=== PATIENT | female | born 1955 | race Caucasian/White ===

== ENCOUNTER → 2016-11-22 | Outpatient (CLI) | payer OTHER ==
[~2016-11-22] MED LIST: ASPI81TA85 PO; DIOV160T2 PO; PERC10TA9 PO; PERCOCET FT; VENL75CA PO; ZOCO20TA PO
--- NOTE | 2016-11-22 16:43 | REPMRS ---
Patient History The patient states she had a clinical breast exam in 2015. Patient is postmenopausal and has history of other cancer at age 28. Family history of colorectal cancer in maternal grandmother at age 77. Took hormonal contraceptives for 15 years. Took estrogen for 3 years. Digital Mammo Screening Bilat: November 22, 2016 - Exam #: [id number] Bilateral CC and MLO view(s) were taken. Technologist: Becca Robledo, Technologist Prior study comparison: July 23, 2015, bilateral digital mammo screening bilat performed at [facility]. March 10, 2014, bilateral bilat screen digital mammo, performed at [facility] ([facility] FINDINGS: There are scattered fibroglandular densities. There has been no change in the appearance of the mammogram from the prior studies. There is a scant amount of residual fibroglandular tissue which is fairly symmetric. There is no interval development of dominant mass, architectural distortion, or clustered microcalcification suggestive of malignancy. Scattered lymph nodes are seen in the left axilla. A single benign coarse calcification in the right breast is stable. No significant changes when compared with prior studies. ASSESSMENT: BI-RADS/ACR category 2 mammogram. Benign finding(s). Recommendation Routine screening mammogram in 1 year (for women over age 40). This mammogram was interpreted with the aid of an FDA-approved computer-aided dectection system. A. Negative x-ray reports should not delay biopsy if a dominant or clinically suspicious mass is present. B. Four to eight percent of cancers are not identified by mammography. C. Adenosis and dense breast may obscure an underlying neoplasm. Electronically Signed By: Sanjay Fairchild MD 11/22/16 [id number]
== END ==
LOC: M RAD 14:50
PROVIDERS: ATTEND Internal Medicine
DX: Z12.31 Encounter for screening mammogram for malignant neoplasm of breast (principal)

== ENCOUNTER 2017-02-16 12:34 | Emergency (ER) | payer OTHER ==
[~2017-02-16] VITALS: Ht 160 cm; Wt 83.9 kg
[2017-02-16] MEDS ORDERED: LEVO50TA5 PO (13:12)
[2017-02-16] MEDS ORDERED: VALS160T PO (13:13)
--- NOTE | 2017-02-16 15:05 | REP ---
CT CERVICAL SPINE WITHOUT CONTRAST: 02/16/2017 CLINICAL HISTORY: Trauma. TECHNIQUE: Axial soft-tissue and bone windows with coronal and sagittal bone reconstructions provided. FINDINGS: The sagittal mail order clerk image shows a hard collar in place. There is a small mucous retention cyst or polyp in the floor of the left maxillary antrum. There is mucosal thickening anteriorly in the left sphenoid sinus. The ethmoid air cells are grossly intact. There is minor mucosal thickening in the medial and lateral garland of the inferior right maxillary sinus. There is no air-fluid levels. Visualized skull base and mastoids unremarkable. Sagittal reconstruction show spondylosis with larger osteophytes at C6-7. Smaller at C5-6, C4-5 and C3-4. There is disc space narrowing from C4-5 through C6-7. No compression deformity or malalignment. No avulsions. The ring of C1 is intact. The dens shows normal relationship to the anterior arch and lateral masses of C1 on all projections. Spinous processes, facets, lamina, pedicles and transverse processes are all grossly intact. Hypertrophic facet change. Marginal osteophytes at C4-5 through C6-7 small. No significant central canal stenosis or foraminal stenosis. IMPRESSION: 1. Diffuse degenerative disc changes from C4-5 to C6-7 disc space narrowing, anterior posterior osteophytes and mild spurring anteriorly at C3-4. No compression deformity or destructive lesion and no central canal or foraminal stenosis. 2. I do not see other significant findings in the cervical spine. Signed by Sanjay Fairchild MD 02/16/2017 05:03 P
[2017-02-16] MEDS ORDERED: NORCO, ANEXSIA 5/325MG TABLET (HYDROcodone/ACETAMINOPHEN) PO ONE (16:15)
--- NOTE | 2017-02-16 16:17 | REP ---
Clinical: Chest pain . Comparison: None . Technique: PA and lateral. Findings: The mediastinum and cardiac silhouette are normal. The lung crook are clear and without acute consolidation, effusion, or pneumothorax. Minimal linear atelectasis at the left base cannot be excluded. The skeletal structures are intact and normal. Impression: Minimal linear atelectasis at the left base cannot be excluded. Signed by Rick Priest MD 02/16/2017 04:08 P
--- NOTE | 2017-02-16 16:20 | REP ---
Clinical: Trauma . Technique: AP, lateral, bilateral oblique views of the right and left elbow. Findings: No acute fracture or dislocation is appreciated. Joint spaces and surrounding soft tissues appear normal. Lateral view demonstrates normal positioning to the anterior and posterior fat pads without evidence for effusion/hemarthrosis. No subcutaneous emphysema or foreign body identified. Impression: Normal bilateral elbow radiographs. No acute fracture dislocation. Signed by Rick Priest MD 02/16/2017 04:11 P
--- NOTE | 2017-02-16 16:20 | REP ---
Clinical: Trauma . Technique: Internal rotation, external rotation, and Y view left shoulder . Findings: No acute fracture or dislocation. The acromioclavicular and glenohumeral joints are intact. No periarticular calcifications or degenerative changes are appreciated. Sub acromial space is normal. Surrounding soft tissues are unremarkable. Impression: Normal left shoulder radiographs. Signed by Rick Priest MD 02/16/2017 04:12 P
[2017-02-16] MEDS ORDERED: NORCOTAB PO (17:16)
[2017-02-16] MEDS ORDERED: CYCL5TA PO (17:17)
[2017-02-16 17:39] VITALS: BP 141/84
--- NOTE | 2017-02-17 11:39 | ECGEPIP ---
Stationary ECG Study [facility] - ED Test Date: 2017-02-16 Pat Name: RAKESH ALVAREZ Department: Room: - Gender: F Sports Anchor: benjie : 1955 Requested By: Eleonora Sanchez Order Number: [id number] Reading MD: Eleonora Sanchez Measurements Intervals [place] Rate: 84 P: -1 IL: 99 QRS: -10 QRSD: 88 T: 66 QT: 382 QTc: 452 Interpretive Statements SINUS RHYTHM WITH SHORT [place] INTERVAL LEFT VENTRICULAR HYPERTROPHY AND ST-T CHANGE VS ISCHEMIA INCREASED RATE 10/19/13 Electronically Signed On 02-17-2017 11:38:55 EDT by Eleonora Sanchez
== END 2017-02-16 17:40 | disposition home or self-care (01) ==
LOC: M ED 15:38
DX: S13.4XXA Sprain of ligaments of cervical spine, initial encounter (principal); T14.8 Other injury of unspecified body region; V43.52XA Car driver injured in collision with other type car in traffic accident, initial encounter; Y92.410 Unspecified street and highway as the place of occurrence of the external cause; Z79.899 Other long term (current) drug therapy; R94.31 Abnormal electrocardiogram [ECG] [EKG]; M50.30 Other cervical disc degeneration, unspecified cervical region; M25.78 Osteophyte, vertebrae

== ENCOUNTER → 2017-07-10 | Outpatient (CLI) | payer OTHER ==
[~2017-07-10] MED LIST changes: +CYCL5TAB PO; +LEVO50TA5 PO; +NORCOTAB PO; +VALS160T PO
== END ==
LOC: M WUC 15:59
PROVIDERS: ATTEND Nurse Practitioner Family
DX: Z00.00 Encounter for general adult medical examination without abnormal findings (principal)

== ENCOUNTER → 2017-12-18 | Outpatient (CLI) | payer OTHER | LOC: M RAD 13:26 | DX: Z12.31 Encounter for screening mammogram for malignant neoplasm of breast (principal) ==

== ENCOUNTER → 2018-01-04 | Outpatient (REF) | payer OTHER | LOC: M LAB REF 12:22 | DX: L72.11 Pilar cyst (principal) ==

== ENCOUNTER 2018-11-28 06:43 | Day surgery (SDC) | payer OTHER ==
[~2018-11-28] VITALS: Ht 162.6 cm; Wt 80.7 kg
[~2018-11-28 06:43] MED LIST changes: +ATOR1TAB21 PO; +CLOB0.0526 TOP; +LEVO88TA3 PO; +MULT1TAB10 PO; +NS 1,000 ML IV ONE; +VENL150C43 PO; +VENL75CA47 PO
[2018-11-28] MEDS ORDERED: PROPOFOL 200 MG/20 ML VIAL As Ordered ONE (07:33)
[2018-11-28] MEDS ORDERED: LIDOCAINE 2% INJ 100 MG/5 ML SDV (FOR ANES.) As Ordered ONE (07:33)
--- NOTE | 2018-11-28 07:57 | ROOR ---
Patient Name: Camila Fuller Procedure Date: 11/28/2018 7:29 AM Date of : 1955 Age: 63 Room: [facility] ED Gender: Female Note Status: Finalized Procedure: Total Colonoscopy to Cecum + Biopsy Polypectomy Indications: High risk colon cancer surveillance: Personal history of colonic polyps, Last colonoscopy: 2014 Providers: Woodrow Ware MD Referring MD: Ariana LOMELI MD Requesting Provider: Medicines: Monitored Anesthesia Care Complications: No immediate complications. Procedure: Pre-Anesthesia Assessment: - The heart rate, respiratory rate, oxygen saturations, blood pressure, adequacy of pulmonary ventilation, and response to care were monitored throughout the procedure. The Colonoscope was introduced through the anus and advanced to the cecum, identified by appendiceal orifice and ileocecal valve. The colonoscopy was performed without difficulty. The patient tolerated the procedure well. The quality of the bowel preparation was excellent. Findings: The perianal and digital rectal examinations were normal. Non-bleeding internal hemorrhoids were found during retroflexion. The hemorrhoids were small and Grade I (internal hemorrhoids that do not prolapse). Scattered small-mouthed diverticula were found in the recto-sigmoid colon, sigmoid colon and descending colon. A small polyp was found at 10 cm proximal to the anus. The polyp was sessile. The polyp was removed with a jumbo cold forceps. Resection and retrieval were complete. A small polyp was found in the cecum. The polyp was sessile. The polyp was removed with a jumbo cold forceps. Resection and retrieval were complete. A small polyp was found in the proximal transverse colon. The polyp was sessile. The polyp was removed with a jumbo cold forceps. Resection and retrieval were complete. The exam was otherwise without abnormality on direct and retroflexion views. Impression: - Non-bleeding internal hemorrhoids. - Diverticulosis in the recto-sigmoid colon, in the sigmoid colon and in the descending colon. - One small polyp at 10 cm proximal to the anus, removed with a jumbo cold forceps. Resected and retrieved. - One small polyp in the cecum, removed with a jumbo cold forceps. Resected and retrieved. - One small polyp in the proximal transverse colon, removed with a jumbo cold forceps. Resected and retrieved. - The examination was otherwise normal on direct and retroflexion views. - The exam was otherwise normal to the cecum. Recommendation: - Patient has a contact number available for emergencies. The signs and symptoms of potential delayed complications were discussed with the patient. Return to normal activities tomorrow. Written discharge instructions were provided to the patient. - High fiber diet. - Discharge patient to home. - Continue present medications. - Await pathology results. - Telephone GI clinic for pathology results in 1 week. - Repeat colonoscopy in 5 years for surveillance based on pathology results. - Return to referring physician. - Check Portal Online for Path Results.([email or web address]) - The findings and recommendations were discussed with the patient's family. Woodrow Ware MD Woodrow Ware MD 11/28/2018 7:57:07 AM This report has been signed electronically. Number of Addenda: 0 Note Initiated On: 11/28/2018 7:29 AM Estimated Blood Loss: Estimated blood loss: none.
[2018-11-28 08:15] VITALS: BP 115/63
== END 2018-11-28 08:25 | disposition home or self-care (01) ==
LOC: M OPP 06:43
PROVIDERS: ATTEND Internal Medicine Gastroenterology
DX: Z86.010 Personal history of colon polyps (principal); K63.5 Polyp of colon; D12.0 Benign neoplasm of cecum; D12.3 Benign neoplasm of transverse colon; K64.0 First degree hemorrhoids; K57.30 Diverticulosis of large intestine without perforation or abscess without bleeding; E03.9 Hypothyroidism, unspecified; Z79.899 Other long term (current) drug therapy; Z87.891 Personal history of nicotine dependence

== ENCOUNTER → 2019-06-25 | Outpatient (CLI) | payer OTHER ==
[~2019-06-25] MED LIST changes: +HYDR-3715 PO; -NORCOTAB PO; -NS 1,000 ML IV ONE; +OXYC1TAB23 FT; -PERCOCET FT
--- NOTE | 2019-06-25 12:55 | REPMRS ---
Patient History The patient states she had a clinical breast exam in October 2018.Family history of colorectal cancer at age 77 in maternal grandmother. Took hormonal contraceptives for 15 years. Took estrogen for 3 years. 3D TOMOSYNTHESIS WAS PERFORMED. The Christiano Petit lifetime risk for breast cancer is 6.9%. Digital Mammo Screening Bilat: June 25, 2019 - Exam #: [id number] Bilateral CC and MLO view(s) were taken. Technologist: Bri Cortez, Technologist Prior study comparison: December 18, 2017, bilateral digital mammo screening bilat performed at [facility]. November 22, 2016, bilateral digital mammo screening bilat performed at [facility]. FINDINGS: There are scattered fibroglandular densities. There has been no change in the appearance of the mammogram from the prior studies. There is a mild amount of residual fibroglandular tissue which is fairly symmetric. There is no interval development of dominant mass, architectural distortion, or clustered microcalcification suggestive of malignancy. Assessment: BI-RADS/ACR category 1 mammogram. Negative Mammogram. Recommendation Routine screening mammogram in 1 year (for women over age 40). This mammogram was interpreted with the aid of an FDA-approved computer-aided dectection system. Electronically Signed By: Bo Omalley MD 06/25/19 [id number]
== END ==
LOC: M RAD 11:09
PROVIDERS: ATTEND Internal Medicine
DX: Z12.31 Encounter for screening mammogram for malignant neoplasm of breast (principal)

== ENCOUNTER → 2020-09-14 | Outpatient (CLI) | payer MEDICARE, OTHER ==
[~2020-09-14] MED LIST changes: -VALS160T PO; +VALS160T2 PO
--- NOTE | 2020-09-14 13:54 | REPMRS ---
Patient History The patient states she had a clinical breast exam in 04/20 Patient is postmenopausal and has history of cervical cancer at age 28. Family history of colorectal cancer at age 77 in maternal grandmother. Took hormonal contraceptives for 15 years. Took estrogen for 3 years. Digital Woman Screen Mammo: September 14, 2020 - Exam #: [id number] Bilateral CC and MLO view(s) were taken. Technologist: Haley Barraza, Technologist Prior study comparison: June 25, 2019, bilateral digital mammo screening bilat, performed at [facility]. December 18, 2017, bilateral digital mammo screening bilat, performed at [facility]. November 22, 2016, bilateral digital mammo screening bilat, performed at [facility]. FINDINGS: The breast tissue is almost entirely fat. The Volpara volumetric breast density category is: A. There has been no change in the appearance of the mammogram from the prior studies. There is no interval development of dominant mass, architectural distortion, or grouped microcalcification typical of malignancy. 3-D tomosynthesis shows no additional findings. Assessment: BI-RADS/ACR category 1 mammogram. Negative Mammogram. Recommendation Routine screening mammogram of both breasts in 1 year (for women over age 40). This patient's [facility] Lifetime Breast Cancer RIsk is estimated at 6.6 %. This mammogram was interpreted with the aid of an FDA-approved computer-aided dectection system. Electronically Signed By: Hardeep Duran MD 09/14/20 [id number]
--- NOTE | 2020-09-14 16:56 | DEXAMM ---
INDICATION: M85.80 DISORDER OF BONE DENSITY. COMPARISON: Comparison study April 12, 2011 and January 04 2006.. TECHNIQUE: Bone density was measured using dual-energy x-ray absorptionmetry (DEXA). FINDINGS: AP SPINE L1-L4 BMD 1.237 g/cm2 Young Adult T-Score 0.3 Age Matched Z-Score 1.9. LT FEMUR, TOTAL BMD 1.076 g/cm2 Young Adult T-Score 0.5 Age Matched Z-Score 1.7. LT NECK BMD 0.884 g/cm2 Young Adult T-Score -1.1 Age Matched Z-Score 0.4. RT FEMUR, TOTAL BMD 1.062 g/cm2 Young Adult T-Score 0.4 Age Matched Z-Score 1.6. RT NECK BMD 0.914 g/cm2 Young Adult T-Score -0.9 Age Matched Z-Score 0.6. IMPRESSION: There is normal bone density of the spine. There is low bone density of the left hip. There is normal bone density of the right hip. The density of the spine has decreased 2.7% since the initial exam on January 04, 2006. The density of the spine decreased 6.4% since most recent exam on April 12, 2011. The density of the left hip has decreased 1.9% since initial exam on January 04, 2006. The density of the left hip has decreased 1.6% since most recent exam on April 12, 2011. The density of the right hip has decreased 3.5% since the initial exam on January 04, 2006. The density of the right hip has decreased 4.6% since the most recent exam on April 12, 2011. FOLLOW-UP: Recommendation for the next bone density exam: 2 years. <Electronically signed by Hardeep Duran > 09/14/20 [id number]
== END ==
LOC: M WHC 12:58
PROVIDERS: ATTEND Internal Medicine
DX: Z12.31 Encounter for screening mammogram for malignant neoplasm of breast (principal); Z85.41 Personal history of malignant neoplasm of cervix uteri; Z92.0 Personal history of contraception; M85.852 Other specified disorders of bone density and structure, left thigh

== ENCOUNTER → 2021-04-10 | Outpatient (REF) | payer MEDICARE, OTHER | LOC: M LAB REF 17:56 | PROVIDERS: ATTEND Nurse Practitioner Family | DX: R35.0 Frequency of micturition (principal) ==

== ENCOUNTER → 2021-10-06 | Outpatient (CLI) | payer MEDICARE, OTHER ==
--- NOTE | 2021-10-06 16:01 | REPMRS ---
Patient History The patient states she had a clinical breast exam in September 2021. Patient is postmenopausal and has history of other cancer at age 28. Family history of colorectal cancer at age 77 in maternal grandmother. Took hormonal contraceptives for 15 years. Took estrogen for 3 years. 10 lb unintentional weight gain. Pfizer vaccines 10/31/20 left arm. 11/21/20 left arm. 07/26/21 left arm. Patient states no breast complaints today. Patient has signed MRS History Sheet. Digital Woman Screen Mammo: October 06, 2021 - Exam #: [id number] Bilateral CC and MLO view(s) were taken. Technologist: RT Aram Prior study comparison: September 14, 2020, bilateral digital woman screen mammo performed at [facility] [place]. June 25, 2019, bilateral digital mammo screening bilat, performed at [facility]. FINDINGS: There are scattered fibroglandular densities. Screening. Digital screening (2D) mammography was performed bilaterally in the CC and MLO projections. Additionally, breast tomosynthesis (3D mammography) was performed bilaterally in the CC and MLO projections. Todays exam was compared to the prior exam/exams. By history, the patient has no complaints of a palpable breast abnormality or other significant breast complaints. The breasts are unchanged in size and shape. There are no jasmyn-soft tissue densities or spiculated masses. There is no internal architectural distortion.Once again, stable benign appearing calcifications are seen. There are no suspicious jasmyn-calcific clusters. Skin thickening or nipple retraction is not present. IMPRESSION: BI-RADS Category 2- Benign Findings. There is no evidence of malignant alteration of the breasts. Followup examination recommended in one year. The Volpara volumetric breast density category is B, there are scattered areas of fibroglandular densities. This mammogram was read with the assistance of [employer],an FDA approved computer aided detection system for mammography. The lifetime Tyrer-Cuzick score is 9.5 % Negative x-ray reports should not delay surgical consultation if a dominant or clinically suspicious mass is present. Not all breast cancers can be identified by mammography. Therefore, we recommend that you continue to perform regular breast self-examination and physical examination and then promptly contact your physician of any concerns or changes. Adenosis and dense breasts may obscure an underlying neoplasm. Assessment: BI-RADS/ACR category 2 mammogram. Benign Findings. Recommendation Routine screening mammogram of both breasts in 1 year. Electronically Signed By: Damon Sigala DO 10/06/21 1600
== END ==
LOC: M WHC 15:27
PROVIDERS: ATTEND Internal Medicine
DX: Z12.31 Encounter for screening mammogram for malignant neoplasm of breast (principal); Z78.0 Asymptomatic menopausal state; Z85.9 Personal history of malignant neoplasm, unspecified

== ENCOUNTER → 2022-11-28 | Outpatient (CLI) | payer MEDICARE, OTHER | LOC: M WHC 14:29 | PROVIDERS: ATTEND Internal Medicine | DX: Z12.31 Encounter for screening mammogram for malignant neoplasm of breast (principal) ==

== ENCOUNTER → 2023-02-16 | Outpatient (REF) | payer MEDICARE, OTHER | LOC: M LAB REF 12:23 | PROVIDERS: ATTEND Internal Medicine | DX: E78.00 Pure hypercholesterolemia, unspecified (principal) ==

== ENCOUNTER → 2023-12-20 | Outpatient (CLI) | payer MEDICARE, OTHER | LOC: M WHC 14:31 | PROVIDERS: ATTEND Internal Medicine | DX: Z12.31 Encounter for screening mammogram for malignant neoplasm of breast (principal) ==

== ENCOUNTER 2023-12-31 06:33 | Emergency (ER) | payer MEDICARE, OTHER ==
[~2023-12-31] VITALS: Ht 160 cm; Wt 89.1 kg
[2023-12-31] MEDS: AUGMENTIN 875 MG TAB PO ONE (08:05)
[2023-12-31] MEDS: KETOROLAC 30 MG/ML 1ML VIAL IV ONE (08:09)
[2023-12-31] MEDS ORDERED: AMOX875T2 PO (08:58)
[2023-12-31] MEDS ORDERED: KETO10TAB PO (08:58)
[2023-12-31 09:21] VITALS: BP 151/78; TEMP 97.1; O2SAT 95
== END 2023-12-31 09:24 | disposition home or self-care (01) ==
LOC: M ED 06:33
DX: K04.7 Periapical abscess without sinus (principal); I10 Essential (primary) hypertension; F41.9 Anxiety disorder, unspecified; F32.A Depression, unspecified; E03.9 Hypothyroidism, unspecified; Z79.2 Long term (current) use of antibiotics; Z79.02 Long term (current) use of antithrombotics/antiplatelets; Z79.811 Long term (current) use of aromatase inhibitors; Z79.899 Other long term (current) drug therapy
CPT/HCPCS: 80047; 96374; 99283; J1885

== ENCOUNTER 2024-04-24 12:19 | Day surgery (SDC) | payer MEDICARE, OTHER ==
[~2024-04-24] VITALS: Ht 157.5 cm; Wt 86.9 kg
[~2024-04-24 12:19] MED LIST changes: +AMOX875T2 PO; +KETO10TAB PO; +MULTTAB61 PO
[2024-04-24] MEDS: NS 1,000 ML IV ONE (13:06)
[2024-04-24] MEDS ORDERED: propofoL 200 MG/20 ML VIAL As Ordered ONE (14:44)
[2024-04-24 14:46] VITALS: TEMP 96.9
[2024-04-24 15:00] VITALS: BP 141/77; O2SAT 98
== END 2024-04-24 15:11 | disposition home or self-care (01) ==
LOC: M OPP 12:19
PROVIDERS: ATTEND Internal Medicine Gastroenterology
DX: Z12.11 Encounter for screening for malignant neoplasm of colon (principal); Z86.010 Personal history of colon polyps; K64.0 First degree hemorrhoids; K57.30 Diverticulosis of large intestine without perforation or abscess without bleeding; I10 Essential (primary) hypertension; E03.9 Hypothyroidism, unspecified; Z79.02 Long term (current) use of antithrombotics/antiplatelets; Z79.52 Long term (current) use of systemic steroids; Z79.890 Hormone replacement therapy; Z79.899 Other long term (current) drug therapy

== ENCOUNTER → 2025-01-08 | Outpatient (CLI) | payer MEDICARE, OTHER ==
[~2025-01-08] MED LIST changes: -CYCL5TAB PO; +CYCL5TAB4 PO
== END ==
LOC: M WHC 13:36
PROVIDERS: ATTEND Internal Medicine
DX: Z12.31 Encounter for screening mammogram for malignant neoplasm of breast (principal); M81.0 Age-related osteoporosis without current pathological fracture